=== PATIENT | female | born 1955 | race African-American/Black ===

== ENCOUNTER 2022-02-09 10:05 | Emergency (ER) | payer OTHER, SELFPAY ==
--- NOTE | ~2022-02-09 | XR_ITS ---
Clinical Indication: Cough, Covid 19 positive PA and lateral views of the chest: Comparison: 02/24/2016 Findings: The lungs are clear, without evidence of focal consolidation or pleural effusion. Cardiome diastinal silhouette is within normal limits. Bones and soft tissues are unremarkable. Impression: Normal chest. Reviewed, dictated and finalized at location . 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
[2022-02-09 10:12] VITALS: BP 141/82; PULSE 73; RESP 20; TEMP 36.5; O2SAT 98
[2022-02-09 10:16] VITALS: BP 141/82; PULSE 73; RESP 20; TEMP 36.5; O2SAT 98
--- NOTE | 2022-02-09 11:03 | ED.URI ---
HPI - URI/Sore Throat General Chief Complaint: Upper Respiratory Infection Stated Complaint: +COVID/COUGH/SORE THROAT Time Seen by Provider: 02/09/22 10:20 Source: patient Mode of arrival: ambulatory Limitations: no limitations History of Present Illness HPI Narrative: Vickie is a 66-year-old female patient presenting to the clinic today with complaints of cough and throat irritation. She reports she is having some thick phlegm in unable to get it up and feels a little congestion in her chest. She states she tested positive via COVID PCR on February 06. She has a history of sarcoidosis MD elicited complaint: sore throat, nasal congestion and other (Chest congestion) Related Data Allergies Allergy/AdvReac Type Severity Reaction Status Date / Time acetaminophen [From Vicodin] Allergy Hives Verified 02/09/22 11:31 codeine Allergy Hives Verified 02/09/22 11:31 cortisone Allergy Other Verified 02/09/22 10:16 egg Allergy Hives Verified 02/09/22 11:31 hydrocodone [From Vicodin] Allergy Hives Verified 02/09/22 11:31 lorazepam [From Ativan] Allergy Confusion Verified 02/09/22 10:16 mustard Allergy Anaphylaxis Verified 02/09/22 10:13 peanut Allergy Anaphylaxis Verified 02/09/22 10:13 tomato Allergy Hives Verified 02/09/22 11:31 triamcinolone [From Kenalog] Allergy Hives Verified 02/09/22 10:16 Review of Systems Review of Systems: Pertinent positives per HPI. Patient denies any fever, chills, rash, headache, visual changes, dizziness, cough, shortness of breath, chest pain, palpitations, nausea, vomiting, diarrhea, constipation, abdominal pain, or any urinary issues. PMFSH Comments At the time of my signature, I reviewed and agree with the nursing past medical, surgical, social, and family history. There is no relevant family history pertinent to the patient complaint. Exam Narrative: General: Well-developed, well nourished, in no apparent distress Head: Normocephalic, atraumatic Eyes: Pupils equally round and reactive to light bilaterally, EOM intact, sclera and conjunctive clear, no discharge, lids normal Ears: TMs intact and clear, ear canals clear, no drainage, grossly hearing normal. Nose: Nares patent, clear nasal discharge, no inflammation, no sinus tenderness. Mouth: Oral pharynx without lesions or masses, good dentition, MMM. Oropharynx red, postnasal drip Neck: Supple, trachea midline, no enlargement of anterior or posterior cervical nodes, no thyroid masses or goiter palpable. Cardio: Regular rate and rhythm, s1 and s2 normal, no murmur appreciated. Resp: Diminished breath sounds in the bases, no rhonchi, rales, wheezing or rubs Course Course Emergency Course: Portions of this record may have been created with voice recognition software. Level of Care: Express Care Visit Vital Signs Vital signs: Vital Signs Temperature 36.5 C 02/09/22 10:12 Pulse Rate 73 02/09/22 10:12 Respiratory Rate 20 02/09/22 10:12 Blood Pressure 141/82 H 02/09/22 10:12 Pulse Oximetry 98 02/09/22 10:12 Oxygen Delivery Room Air 02/09/22 10:12 Temperature 36.5 C 02/09/22 10:16 Pulse Rate 73 02/09/22 10:16 Respiratory Rate 20 02/09/22 10:16 Blood Pressure 141/82 H 02/09/22 10:16 Pulse Oximetry 98 02/09/22 10:16 Oxygen Delivery Room Air 02/09/22 10:16 Vital signs reviewed MDM - URI/Sore Throat MDM Narrative Medical decision making narrative: At the time of visit patient is resting comfortably on the exam table. Chest x-ray was performed and is negative for any sign of infection. Patient was positive for COVID-19. I will give her prescription for mulnopirviar. 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 Supportive measures were discussed with the patient she voiced understanding of discharge instructions and agrees to treatment plan. Differential Diagnosis Differential diagnosis:
== END 2022-02-09 11:23 | disposition home or self-care (01) ==
PROVIDERS: Emergency Provider Nurse Practitioner Family; PCP Family Medicine
DX: U07.1 COVID-19 (principal); D86.9 Sarcoidosis, unspecified
CPT/HCPCS: 71046; 99213; G0463

== ENCOUNTER 2023-10-04 19:01 | Emergency (ER) | payer OTHER, SELFPAY ==
[2023-10-04 19:12] VITALS: BP 177/84; PULSE 77; RESP 16; TEMP 36.7; O2SAT 99
--- NOTE | 2023-10-04 19:12 | ED.ALLEREA ---
HPI - Allergic Reaction General Chief complaint: Allergic Reaction Stated complaint: ALLERGIC REACTION Time Seen by Provider: 10/04/23 19:22 Source: patient, RN notes reviewed and old records reviewed Mode of arrival: ambulatory Limitations: no limitations History of Present Illness HPI narrative: 67 year old female who presents to [facility] accompanied by daughter with complaints of rash related to possible allergic reaction to food, Patient reports that she 3-4 hors ago she ate carrot Bundt cake and it must have had some peanuts in it. Patient reports that she has developed a rash and she has itching around her mouth and palms of her hands. Patient reports that her nose feels stuffy, denies any shortness of breath MD complaint: allergic reaction and other (rash) Onset (ago): hour(s) (3-4 hours ago) Exposure: food (Bundt carrot cake question exposure to peanuts) Known history of allergy to: Food: tomato, peanut, mustard, and egg Medications: codeine, cortisone, hydrocodone. 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) Related Data Home Medications Medication Instructions Recorded Confirmed No Home Medications 10/04/23 10/04/23 Allergies Allergy/AdvReac Type Severity Reaction Status Date / Time acetaminophen [From Vicodin] Allergy Hives Verified 10/04/23 19:06 codeine Allergy Hives Verified 10/04/23 19:06 cortisone Allergy Other Verified 10/04/23 19:06 egg Allergy Hives Verified 10/04/23 19:06 hydrocodone [From Vicodin] Allergy Hives Verified 10/04/23 19:06 lorazepam [From Ativan] Allergy Confusion Verified 10/04/23 19:06 mustard Allergy Anaphylaxis Verified 10/04/23 19:06 peanut Allergy Anaphylaxis Verified 10/04/23 19:06 tomato Allergy Hives Verified 10/04/23 19:06 triamcinolone [From Kenalog] Allergy Hives Verified 10/04/23 19:06 Review of Systems Review of Systems: CONSTITUTIONAL: Denies fever, chills, or sweats. EYES: Denies visual changes, redness, or discharge. ENT: Denies rhinorrhea, congestion, sore throat, or otalgia, reports stuffy nose CARDIOVASCULAR: Denies chest pain, palpitations, or edema. RESPIRATORY: Denies cough or dyspnea. GASTROINTESTINAL: Denies abdominal pain, nausea, vomiting, or diarrhea.denies any difficulty with swallowing GENITOURINARY: Denies dysuria or hematuria. SKIN: Reports scattered red itchy with itching. MUSCULOSKELETAL: Denies back pain, joint pain, or myalgia. NEUROLOGIC: Denies headache, numbness, or weakness. PSYCHIATRIC: Denies anxiety or depression. 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 There is no relevant family history pertinent to the presenting complaint Exam Narrative: GENERAL: Well-appearing, well-nourished, and in no acute distress. HEAD: Normocephalic, atraumatic. EYES: PERRLA and EOMI. ENT: Nares clear, no rhinorrhea or epistaxis. Mucous membranes moist.TM's normal throat pink with no swelling stuffy nose reported NECK: Supple. no lymphadenopathy CHEST: Clear to auscultation. No respiratory distress.
[2023-10-04] MEDS: diphenhydrAMINE HCl CAP 25 MG CAPSULE 50 MG PO (19:21)
== END 2023-10-04 19:36 | disposition home or self-care (01) ==
PROVIDERS: Emergency Provider Registered Nurse; PCP Family Medicine
DX: T78.40XA Allergy, unspecified, initial encounter (principal)
CPT/HCPCS: 99213; A9270; G0463

== ENCOUNTER 2024-02-22 19:09 | Emergency (ER) | payer OTHER, SELFPAY ==
--- NOTE | ~2024-02-22 | XR_ITS ---
HISTORY: patella pain after fall COMPARISON: None TECHNIQUE: 3 views of the right knee were performed FINDINGS: Ossification of the insertion of the quadriceps tendon with possible fracture deformity at its crania l most portion is suspected. No acute displaced fracture is appreciated. Medial tibiofemoral joint space narrowing is identified. Small suprapatellar joint effusion is identified. The infrapatellar joint space is clear. IMPRESSION: Small suprapatellar joint effusion with a possible fracture deformity of the ossification of the inse rtion of the quadriceps tendon, as detailed above. Reviewed, dictated and finalized at location A. E UP ARTIST IMPRESSION: Small suprapatellar joint effusion with a possible fracture deformity of the os sification of the insertion of the quadriceps tendon, as detailed above.
[2024-02-22 19:19] VITALS: BP 167/87; PULSE 70; RESP 16; TEMP 36.7; O2SAT 99
--- NOTE | 2024-02-22 19:22 | ED_ITS ---
HPI - Extremity Injury (Lower) General Chief Complaint: Extremity Injury, Lower Stated Complaint: fall,lower extremity injury Time Seen by Provider: 02/22/24 19:22 Source: patient Mode of arrival: ambulatory Limitations: no limitations History of Present Illness HPI Narrative: 68 yo F presents with c/o R knee pain. Around 6pm today pt's L leg gave out while going down steps and fell on R knee. Pain worse to kneecap . Uable to beat weight due to pain. Brought into in wheelchair by family. Has not taken any OTC meds to treat pain. All systems reviewed and negative except as noted above. Related Data Home Medications ?Medication ?Instructions ?Recorded ?Confirmed ?Last Taken ?Type No Home Medications 10/04/23 02/22/24 Unknown History Allergies Allergy/AdvReac Type Severity Reaction Status Date / Time acetaminophen (From Vicodin) Allergy Hives Verified 02/22/24 19:21 codeine Allergy Hives Verified 02/22/24 19:21 cortisone Allergy Other Verified 02/22/24 19:21 egg Allergy Hives Verified 02/22/24 19:21 hydrocodone (From Vicodin) Allergy Hives Verified 02/22/24 19:21 lorazepam (From Ativan) Allergy Confusion Verified 02/22/24 19:21 mustard Allergy Anaphylaxis Verified 02/22/24 19:21 peanut Allergy Anaphylaxis Verified 02/22/24 19:21 tomato Allergy Hives Verified 02/22/24 19:21 triamcinolone (From Kenalog) Allergy Hives Verified 02/22/24 19:21 Review of Systems Review of Systems: CONSTITUTIONAL: Denies fever, chills, or sweats. EYES: Denies visual changes, redness, or discharge. ENT: Denies rhinorrhea, congestion, sore throat, or otalgia. CARDIOVASCULAR: Denies chest pain, palpitations, or edema. RESPIRATORY: Denies cough or dyspnea. GASTROINTESTINAL: Denies abdominal pain, nausea, vomiting, or diarrhea. GENITOURINARY: Denies dysuria or hematuria. SKIN: Denies rash or itching. MUSCULOSKELETAL: Reports right knee pain. NEUROLOGIC: Denies headache, numbness, or weakness. PSYCHIATRIC: Denies anxiety or depression. All other systems reviewed are negative, except as documented in HPI. 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 There is no relevant family history pertinent to the presenting complaint. Exam Narrative: GENERAL: This is a well-nourished, well-developed patient, in no apparent distress. HEAD: normocephalic, atraumatic. EYES: PERRL. Sclera clear/white. Vision is grossly intact. EARS: External ears normal NOSE: External nose normal NECK: Neck supple, non-tender without lymphadenopathy, masses or thyromegaly. CARDIOVASCULAR: Regular rate and rhythm without murmurs, gallops, or rubs. RESPIRATORY: Clear to auscultation. Breath sounds equal bilaterally. No wheezes, rales, or rhonchi. SKIN: warm, Dry, intact with no suspicious lesions or rash, good texture and turgor. NEURO: awake, alert, and oriented to person, place and time. There were no obvious focal neurologic abnormalities. EXTREMITIES: Generalized tenderness to right knee. No swelling or deformity noted. Decreased range of motion due to pain. Distal neurovascularly intact. Course Course Level of Care: Express Care Visit Vital Signs Vital signs: Vital Signs Temperature 36.7 C 02/22/24 19:19 Pulse Rate 70 02/22/24 19:19 Respiratory Rate 16 02/22/24 19:19 Blood Pressure 167/87 H 02/22/24 19:19 Pulse Oximetry 99 02/22/24 19:19 Temperature 36.7 C 02/22/24 19:19 Pulse Rate 70 02/22/24 19:19 Respiratory Rate 16 02/22/24 19:19 Blood Pressure 167/87 H 02/22/24 19:19 Pulse Oximetry 99 02/22/24 19:19 Reviewed MDM - Extremity Injury (Lower) MDM Narrative Medical decision making narrative: Patient is aware of diagnosis, understands and agrees to treatment plan. Anticipatory guidance given. Patient agrees to follow-up as directed and is aware of reasons to seek care at the emergency department. Portions of this record may have been created with voice recognition software Patient placed in knee immobilizer and given crutch training by RN. Refer to orthopedics for follow-up for possible fracture to right knee. Patient given paper prescription for tramadol due to electronic prescription not working tonight. Imaging Data My impression: Agree with radiologist Radiologist's impression: HISTORY: patella pain after fall COMPARISON: None TECHNIQUE: 3 views of the right knee were performed FINDINGS: Ossification of the insertion of the quadriceps tendon with possible fracture deformity at its cranial most portion is suspected. No acute displaced fracture is appreciated. Medial tibiofemoral joint space narrowing is identified. Small suprapatellar joint effusion is identified. The infrapatellar joint space is clear. IMPRESSION: Small suprapatellar joint effusion with a possible fracture deformity of the ossification of the insertion of the quadriceps tendon, as detailed above. Discharge Plan Discharge Clinical Impression: Closed fracture of right knee region Patient Disposition: Home, Self-Care Condition: Stable Instructions: Patellar Fracture (ED) Additional Instructions: The x-ray of your right knee showed a possible fracture to your right knee. Take ibuprofen every 6 to 8 hours as needed for pain. Elevate when at rest. Apply ice as needed for pain. Schedule follow-up appointment with administrative and program specialist. Patient Language: Mongolian Prescriptions: No Action No Home Medications Follow-up/Referrals: Juan Jose Archuleta MD [Physician] - (schedule a follow up appointment with administrative and program specialist for fracture care) Kita Guerrier DO [Primary Care Provider] - Time of Disposition: 20:00
== END 2024-02-22 20:14 | disposition home or self-care (01) ==
PROVIDERS: Emergency Provider Nurse Practitioner Family; PCP Family Medicine
DX: S82.001A Unspecified fracture of right patella, initial encounter for closed fracture (principal); W19.XXXA Unspecified fall, initial encounter
CPT/HCPCS: 73562; 99213; G0463; L1830

== ENCOUNTER 2024-03-21 08:31 | Emergency (ER) | payer OTHER, SELFPAY ==
--- NOTE | 2024-03-21 08:33 | ED_ITS ---
HPI - URI/Sore Throat General Chief Complaint: Upper Respiratory Infection Stated Complaint: COUGH/RINGING IN EAR/SINUS DRAINAGE Time Seen by Provider: 03/21/24 08:33 Source: patient Mode of arrival: ambulatory Limitations: no limitations History of Present Illness HPI Narrative: Patient is a 68-year-old female that presents with dry cough, body aches, runny nose and cough that got worse yesterday. Patient also has ringing in her ears in her ears feel full. Daughter was diagnosed with flu A earlier in the week. Denies any fever, chills, nausea, vomiting, diarrhea. Related Data Allergies Allergy/AdvReac Type Severity Reaction Status Date / Time acetaminophen (From Vicodin) Allergy Hives Verified 03/21/24 08:45 codeine Allergy Hives Verified 03/21/24 08:45 cortisone Allergy Other Verified 03/21/24 08:45 egg Allergy Hives Verified 03/21/24 08:45 hydrocodone (From Vicodin) Allergy Hives Verified 03/21/24 08:45 lorazepam (From Ativan) Allergy Confusion Verified 03/21/24 08:45 mustard Allergy Anaphylaxis Verified 03/21/24 08:45 peanut Allergy Anaphylaxis Verified 03/21/24 08:45 tomato Allergy Hives Verified 03/21/24 08:45 triamcinolone (From Kenalog) Allergy Hives Verified 03/21/24 08:45 Review of Systems Review of Systems: All systems reviewed & are unremarkable except as noted in HPI and below Constitutional: Constitutional: Reports body ache(s), Denies chills, Denies fatigue, Denies fever(s), Denies headache(s), Denies malaise and Denies weakness Eyes: Eyes: Denies blurry vision, Denies itchy eyes and Denies loss of vision ENT: Reports otalgia, Denies headache(s), Denies nasal congestion, Reports nasal discharge, Reports tinnitus, Denies sinus pain and Denies sore throat Cardiovascular: Cardiovascular: Denies chest pain, Denies irregular heart rhythm and Denies dyspnea Respiratory: Respiratory: Reports cough and Denies dyspnea Gastrointestinal: Gastrointestinal: Denies abdominal pain, Denies diarrhea, Denies nausea and Denies vomiting Musculoskeletal: Musculoskeletal: Denies back pain, Denies myalgias and Denies arthralgias Integumentary/Breasts: Skin/Breast: Denies pruritus and Denies rash Neurologic: Denies headache(s), Denies loss of vision and Denies weakness Psychiatric: Psychiatric: Reports no additional psychiatric complaints Endocrine: Endocrine: Denies fatigue Allergic/Immunologic: Allergic/Immunologic: Denies itchy eyes PMFSH Past Medical History Medical History Fracture of right patella MCL sprain of right knee 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 At risk for allergic reaction to medication Peanut allergy Multiple food allergies Surgical History Surgical History H/O repair of rotator cuff right Family History Family History Unknown Diabetes mellitus Cerebrovascular accident Arthritis Kidney disorder Social History Social History Social History: caffeine use Smoking status: Former smoker Alcohol intake: never Substance use type: does not use Living arrangements: with family 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 There is no relevant family history pertinent to the presenting complaint. Exam Const: General: cooperative, healthy appearing, comfortable, no acute distress and well nourished Nutritional Appearance: well nourished Orientation/consciousness: patient oriented x3 Limitations: no limitations HENMT: Head: normal to inspection, normocephalic and atraumatic Ears: hearing grossly normal bilaterally, external ears normal, TM's normal bilaterally, EAC's normal and no periauricular adenopathy Face/Nose/Sinus: Normal external nose present, Abnormal mucous membranes and turbinates present erythematous bilateral and diffuse, normal facial exam, sinuses nontender and face symmetric Face and sinus: normal facial exam, sinuses nontender and face symmetric Mouth: Yes Normal oral and palatal mucosa present, Yes lip normal, Yes tongue normal, Yes Normal salivary glands and ducts present, Yes oropharynx normal and Yes moist mucous membranes Teeth and gingiva: dentition normal Throat: posterior oropharynx normal, tonsils normal and uvula midline Eyes: General: appearance normal, both eyes and all related structures Alignment and Position: alignment normal and position normal Periorbital: periorbital findings normal Eyelids: eyelids normal Pupils: Equal, round and reactive pupils present Neck: Neck: normal visual inspection, full ROM, no lymphadenopathy and supple Chest: Chest palpation & inspection: normal inspection of the chest and normal palpation of entire chest wall Resp: Effort & Inspection: normal respiratory effort and able to speak in complete sentences Auscultation: clear to auscultation bilaterally, no crackles, no rales, no rhonchi and no wheezes Cardio: Rate: regular rate Rhythm: regular rhythm Heart sounds: S1 normal heart sound present and S2 normal heart sound present GI: Inspection: normal to inspection Skin: General skin exam: normal color and no rashes or lesions noted Neuro: General: patient oriented x3 and moves all extremities Cranial nerves: Yes Equal, round and reactive pupils present Speech: normal speech Gait exam (Neuro): Normal gait present Extrem: General: normal to inspection, full ROM and no edema Psych: Appearance: grossly normal and well kempt Mental Status: mental status grossly normal Speech and movement: Normal speech and movement present Affect: normal affect Attitude: cooperative Thought process: Normal thought process present Course Course Emergency Course: Discharge instructions reviewed with patient, as well as provided in writing per nursing staff. The instructions also include specific and strict return/GO TO THE ER as well as f/u information. All questions have been answered, and the patient deny any further questions with discharge and discharge plan. Portions of this record may have been created with voice recognition software Level of Care: Express Care Visit Vital Signs Vital signs: Vital Signs Temperature 38.3 C H 03/21/24 08:49 Pulse Rate 82 03/21/24 08:49 Respiratory Rate 16 03/21/24 08:49 Blood Pressure 134/77 03/21/24 08:49 Pulse Oximetry 97 03/21/24 08:49 Temperature 38.3 C H 03/21/24 08:49 Pulse Rate 82 03/21/24 08:49 Respiratory Rate 16 03/21/24 08:49 Blood Pressure 134/77 03/21/24 08:49 Pulse Oximetry 97 03/21/24 08:49 Reviewed MDM - URI/Sore Throat MDM Narrative Medical decision making narrative: Pt well hydrated appearing, in no respiratory distress, hemodynamically stable. Recommend supportive care. The patient is stable at time of discharge the clinical impression was discussed and the patient was given the opportunity to ask questions, which were addressed as completely as possible given the information available at present. Anticipatory guidance and return to care precautions were discussed and the importance of primary care follow-up was stressed and encouraged. The patient voiced understanding of the plan, indications to return, and the need for follow-up. Differential diagnosis considered: Rand virus, strep pharyngitis, allergic rhinitis, upper respiratory tract infection, sinusitis, rhinosinusitis, nasopharyngitis. viral pharyngitis, otitis media, otitis externa, otitis effusion, foreign body, cerumen impaction, viral syndrome, and influenza.? Exam findings show no acute concerns or changes; patient is non-toxic appearing and is in no distress.? Patient is appropriate for outpatient treatment and follow- up.? Medical Records Attestation: I reviewed the patient's medical records. Lab Data Attestation: I reviewed the patient's lab results. Labs: Lab Results 03/21/24 Range/Units 09:00 POC Influenza A Ag Positive (Negative) POC Influenza B Ag Negative (Negative) POC SARS CoV-2 Ag Negative (Negative) Discharge Plan Discharge Clinical Impression: Influenza Patient Disposition: Home, Self-Care Condition: Stable Instructions: Influenza (ED) Additional Instructions: Were positive for influenza A. Your Covid is negative Your symptoms are due to a viral illness, which is not treated with antibiotics. Viral symptoms can be present for up to a few weeks. -For fever/pain, you may take: Tylenol 650-1000mg by mouth every 4-6 hours. Do not exceed 4000mg in 24 hours. Advil (Ibuprofen) 600 mg by mouth every 6 hours. Do not exceed 2400mg in 24 hours. 8 AM: Tylenol 11 AM: Ibuprofen 2 PM: Tylenol 5 PM: Ibuprofen 8 PM: Tylenol 11 PM: Ibuprofen 2 AM: Tylenol 5 AM: Ibuprofen -Antihistamine medication such as Benadryl/Zyrtec at night and Claritin/Malinda during the day can help improve symptoms. -Use Flonase twice a day for 5 days then daily to help reduce the inflammation and dry up your sinuses. -You can also use Sudafed behind the pharmacy counter(12 or 24 hour). Be sure to drink plenty of water with these medications at least 8 ounces with every dose and it is important to drink 8 to 10 glasses of water per day. Water is a natural decongestant -Eat and drink things that are easy to swallow, like tea or soup, or popsicles. -Oral rinses such as: Salt water gargles and/or may use topical anesthetic (eg. Chloraseptic spray) or lozenges to relieve dryness or throat pain). -Frequent hand washing or hand flyer builder is one of the best ways to prevent spread of infection. -Using a vaporizer or humidifier at night will also help thin secretions and help with coughing up phlegm. -Follow up with primary care provider in 3-5 days if condition is not improving - For new or worsening symptoms go directly to the nearest ER Patient Language: Belgian Prescriptions: New benzonatate 100 mg capsule 100 mg PO BID PRN (Reason: cough) Qty: 14 0RF fluticasone propionate [Flonase Allergy Relief] 50 mcg/actuation spray,suspension 1 spray intranasal DAILY Qty: 16 0RF Rx Instructions: administer into each nostril Follow-up/Referrals: Kita Guerrier DO [Primary Care Provider] - 3 Days Time of Disposition: 09:14
[2024-03-21 08:49] VITALS: BP 134/77; PULSE 82; RESP 16; TEMP 38.3; O2SAT 97
[2024-03-21 09:01] LABS: EDCOVIDSCREEN Negative (Negative); EDINFLUASCREEN Positive (Negative); EDINFLUBSCREEN Negative (Negative)
== END 2024-03-21 09:20 | disposition home or self-care (01) ==
PROVIDERS: Emergency Provider Nurse Practitioner Family; PCP Family Medicine
DX: J10.1 Influenza due to other identified influenza virus with other respiratory manifestations (principal); Z20.822 Contact with and (suspected) exposure to COVID-19
CPT/HCPCS: 87426; 87804; 99213; G0463

== ENCOUNTER 2024-06-19 08:10 | Emergency (ER) | payer OTHER, SELFPAY ==
--- NOTE | ~2024-06-19 | XR_ITS ---
Clinical Indication: Cough PA and lateral views of the chest: Comparison: 02/09/2022 Findings: The lungs are clear, without evidence of focal consolidation or pleural effusion. Cardiome diastinal silhouette is within normal limits. Bones and soft tissues are unremarkable. Impression: Normal chest. Reviewed, dictated and finalized at location . Impression: Normal chest.
--- NOTE | 2024-06-19 08:14 | ED.URI ---
HPI - URI/Sore Throat General Chief Complaint: Upper Respiratory Infection Stated Complaint: Cold Symptoms/Congestion Time Seen by Provider: 06/19/24 08:24 Source: patient, RN notes reviewed and old records reviewed Mode of arrival: ambulatory Limitations: no limitations History of Present Illness HPI Narrative: 68-year-old female presents to the [facility] with complaints of nasal drainage, cough, sneezing for 3 days. Denies chest pain or shortness of breath. Denies fevers Patient states she has not taken anything to her symptoms because she does not want a ?mask her symptoms. ? Onset (ago): day(s) (3) Treatments prior to arrival: none Related Data Allergies Allergy/AdvReac Type Severity Reaction Status Date / Time acetaminophen (From Vicodin) Allergy Hives Verified 06/19/24 08:23 codeine Allergy Hives Verified 06/19/24 08:23 cortisone Allergy Other Verified 06/19/24 08:23 egg Allergy Hives Verified 06/19/24 08:23 hydrocodone (From Vicodin) Allergy Hives Verified 06/19/24 08:23 lorazepam (From Ativan) Allergy Confusion Verified 06/19/24 08:23 mustard Allergy Anaphylaxis Verified 06/19/24 08:23 peanut Allergy Anaphylaxis Verified 06/19/24 08:23 tomato Allergy Hives Verified 06/19/24 08:23 triamcinolone (From Kenalog) Allergy Hives Verified 06/19/24 08:23 Review of Systems Review of Systems: All systems reviewed & are unremarkable except as noted in HPI and below Constitutional: Constitutional: Reports as per HPI ENT: Reports as per HPI Cardiovascular: Cardiovascular: Reports no additional cardiovascular complaints, Denies chest pain and Denies dyspnea Respiratory: Respiratory: Reports as per HPI, Denies chest congestion, Reports cough and Denies dyspnea Musculoskeletal: Musculoskeletal: Reports no additional musculoskeletal complaints Integumentary/Breasts: Skin/Breast: Reports system reviewed and no additional complaints, except as docu [facility] Past Medical History Medical History Chondromalacia of right patellofemoral joint Fracture of right patella MCL sprain of right knee 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 At risk for allergic reaction to medication Peanut allergy Multiple food allergies Surgical History Surgical History H/O repair of rotator cuff right Family History Family History Unknown Diabetes mellitus Cerebrovascular accident Arthritis Kidney disorder Social History Social History Social History: caffeine use Smoking status: Never smoker Alcohol intake: never Substance use type: does not use Living arrangements: with family 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 There is no relevant family history pertinent to the patient complaint. Exam Const: General: cooperative, healthy appearing, comfortable, no acute distress, well developed, alert and well nourished Nutritional Appearance: well nourished Orientation/consciousness: patient oriented x3 Limitations: no limitations HENMT: Head: normal to inspection Ears: hearing grossly normal bilaterally, external ears normal, TM's normal bilaterally, EAC's normal, mastoids normal and no periauricular adenopathy Mouth: Yes Normal oral and palatal mucosa present, Yes lip normal, Yes tongue normal and Yes moist mucous membranes Throat: posterior oropharynx normal, uvula midline and no uvular edema Eyes: General: appearance normal, both eyes and all related structures Alignment and Position: alignment normal Neck: Neck: normal visual inspection, full ROM, no lymphadenopathy and no meningeal signs Chest: Chest palpation & inspection: normal inspection of the chest Resp: Effort & Inspection: normal respiratory effort and able to speak in complete sentences Auscultation: clear to auscultation bilaterally, no crackles, no rales, no rhonchi and no wheezes Cardio: Rate: regular rate Skin: General skin exam: normal color and no rashes or lesions noted Neuro: General: patient oriented x3, gait normal, moves all extremities and no meningeal signs Cognition (Neuro): normal cognition Speech: normal speech Gait exam (Neuro): Normal gait present Extrem: General: normal to inspection, full ROM, capillary refill normal and normal gait Psych: Appearance: grossly normal and well kempt Mental Status: mental status grossly normal Speech and movement: Normal speech and movement present and Clear speech present Affect: normal affect Attitude: cooperative Course Course Level of Care: Express Care Visit Vital Signs Vital signs: Vital Signs Temperature 97.9 F 06/19/24 08:30 Pulse Rate 76 06/19/24 08:30 Respiratory Rate 16 06/19/24 08:30 Blood Pressure 140/83 06/19/24 08:30 Pulse Oximetry 99 06/19/24 08:30 Temperature 97.9 F 06/19/24 08:30 Pulse Rate 76 06/19/24 08:30 Respiratory Rate 16 06/19/24 08:30 Blood Pressure 140/83 06/19/24 08:30 Pulse Oximetry 99 06/19/24 08:30 Reviewed MDM - URI/Sore Throat MDM Narrative Medical decision making narrative: Patient sitting in exam room. Patient is nontoxic, vitals stable. Patient is in no acute distress. Patient is requesting flu COVID a COVID and a chest x-ray for her symptoms. COVID and chest x-ray were negative for acute findings. Patient is flu A positive Patient is appropriate for outpatient treatment with [id number] products and close follow-up Discharge instructions reviewed with patient, as well as provided in writing per nursing staff. The instructions also include specific and strict return/GO TO THE ER as well as f/u information. All questions have been answered, and the patient deny any further questions with discharge and discharge plan. Some parts of this dictation were generated by voice recognition software and may contain typographical and/or grammatical inaccuracies. Differential Diagnosis Differential diagnosis: Likely upper respiratory infection, otitis media, sinusitis, viral infection, bronchitis, influenza and pharyngitis Lab Data Labs: Lab Results 06/19/24 Range/Units 08:39 POC Influenza A Ag Positive (Negative) POC Influenza B Ag Negative (Negative) POC SARS CoV-2 Ag Negative (Negative) Reviewed Imaging Data Radiologist's impression: Clinical Indication: Cough PA and lateral views of the chest: Comparison: 02/09/2022 Findings: The lungs are clear, without evidence of focal consolidation or pleural effusion. Cardiomediastinal silhouette is within normal limits. Bones and soft tissues are unremarkable. Impression: Normal chest. Critical Care Time Critical Care Time Critical Care Time: No Discharge Plan Discharge Clinical Impression: Influenza A Patient Disposition: Home Condition: Stable Instructions: Antibiotic Form, Influenza (ED) Additional Instructions: Your chest x-ray did not show signs of pneumonia. Your rapid COVID test was negative Your rapid flu test was positive for influenza A Your symptoms are due to a viral illness, which is not treated with antibiotics. Typically viral infections last 7-10 days, can linger for couple of weeks. It is very important to treat your symptoms. Drink plenty of water, Gatorade, Pedialyte, ice pops or Jell-O. -Alternate Tylenol and Motrin per package directions for fever or pain. You can alternate every 4 hours -Antihistamine medication such as Zyrtec/Claritin/Malinda during the day can help improve symptoms. -doing daily nasal irrigations can help relieve pressure your sinuses. Things like a Neti pot -Use Flonase twice a day for 5 days then daily to help reduce the inflammation and dry up your sinuses. -You can also use Mucinex. Be sure to drink plenty of water with this medication at least 8 ounces with every dose and it is important to drink 8 to 10 glasses of water per day. Water is a natural decongestant -Eat and drink things that are easy to swallow, like tea or soup, or popsicles. -Oral rinses such as: Salt water gargles and/or may use topical anesthetic (eg. Chloraseptic spray) or lozenges to relieve dryness or throat pain). -Frequent hand washing or hand gear nicker is one of the best ways to prevent spread of infection. -Using a vaporizer or humidifier at night will also help thin secretions and help with coughing up phlegm. -Follow up with primary care provider in 7-10 days if condition is not improving - For new or worsening symptoms go directly to the nearest ER Patient Language: Urugu[place] Prescriptions: No Action fluticasone propionate [Flonase Allergy Relief] 50 mcg/actuation spray,suspension 1 spray intranasal DAILY Qty: 16 0RF Rx Instructions: administer into each nostril Follow-up/Referrals: Kita Guerrier DO [Primary Care Provider] - 2 Weeks ([facility] care follow up) Time of Disposition: 09:10
[2024-06-19 08:30] VITALS: BP 140/83; PULSE 76; RESP 16; TEMP 36.6; O2SAT 99
[2024-06-19 08:43] LABS: EDCOVIDSCREEN Negative (Negative)
[2024-06-19 08:44] LABS: EDINFLUASCREEN Positive (Negative); EDINFLUBSCREEN Negative (Negative)
== END 2024-06-19 09:21 | disposition home or self-care (01) ==
PROVIDERS: Emergency Provider Nurse Practitioner; PCP Family Medicine
DX: J10.1 Influenza due to other identified influenza virus with other respiratory manifestations (principal); Z20.822 Contact with and (suspected) exposure to COVID-19
CPT/HCPCS: 71046; 87426; 87804; 99213; G0463